=== PATIENT | female | born 1975 | race African-American/Black ===

== ENCOUNTER 2018-01-10 10:06 | Emergency (ER) | payer MEDICARE, OTHER ==
[~2018-01-10] VITALS: Ht 172.7 cm; Wt 113.4 kg
[~2018-01-10 10:06] MED LIST: BACITRACIN15 GM TOPIC; BACTRIM-DS1 EA PO; CEPHALEXIN500 MG PO; CLINDAMYCIN HC300 MG ORAL; CLOTRIMAZOLE15 GM TOPIC; DICLOXACILLIN250 MG PO; DIFLUCAN200 MG ORAL; DOXYCYCLINE MO100 MG ORAL; GENTAK3.5 GM OP; HALOPERIDOL0.5 MG ORAL; HALOPERIDOL1 MG ORAL; IBUPROFEN600 MG ORAL; KEFLEX500 MG ORAL; LATUDA80 MG PO; PRENATA CHEWAB1 EACH PO; RISPERDAL1 MG PO
[2018-01-10 10:23] VITALS: BP 114/68
--- NOTE | 2018-01-10 10:28 | Emergency Room Report ---
History of Present Illness General Chief Complaint: General Complaint Source: Patient Present Illness HPI Patient is a 42-year-old female who presented after she noticed a lesion to her right wrist approximately 3-4 days ago. The patient denies any pain to the area. She had no recent trauma. Patient denies any fever. The patient is right-hand dominant. She denies any numbness or tingling. Allergies: Coded Allergies: No Known Allergies (Unverified , 07/02/12) Patient History Last Menstrual Period: 12/29/17 Now: No Reviewed Nursing Documentation: PMH: Agreed; PSxH: Agreed Nursing Documentation-PMH Past Medical History: No History, Except For Hx Cardiac Problems: No Hx Hypertension: No Hx Pacemaker: No Hx Asthma: No Hx COPD: No Hx Diabetes: No Hx Cancer: No Hx Gastrointestinal Problems: No Hx Dialysis: No History Of Psychiatric Problem: Yes - Schizophrenia Hx Neurological Problems: No Hx Cerebrovascular Accident: No Hx Seizures: No Review of Systems All Other Systems: negative except mentioned in HPI Physical Exam Vital Signs Date Time Temp Pulse Resp B/P (MAP) Pulse Ox O2 Delivery O2 Flow Rate FiO2 01/10/18 10:10 98.4 100 19 114/68 94 Room Air 98.4 General Appearance: well appearing, no apparent distress, alert, GCS 15 Head: normocephalic, atraumatic ENT: hearing grossly normal, normal voice Neck: full range of motion, supple Respiratory: no respiratory distress, speaking full sentences Musculoskeletal: other - lesion to dorsum of right wrist without induration about 4 cm Neurologic: normal gait Psychiatric: mood/affect normal Skin: no rash Medical Decision Making Diagnostic Impression: Primary Impression: Ganglion cyst ER Course Patient presented for wrist lesion. Differential diagnosis included fracture, dislocation, scapphoid fracture, sprain, ganglion cyst, septic joint , arthritis, abscess among others. Patient has a benign exam and does not appear to require any further imaging or laboratory testing at this time. The patient appears to have a ganglion cyst.The patient is advised to follow up with primary care doctor in 1-2 days. Patient is advised to return if any worsening condition or if any changes in status that are concerning. This report is dictated with [employer] wire drawer software which may occasionally lead to discrepancies related to use of this software. Last Vital Signs Date Time Temp Pulse Resp B/P (MAP) Pulse Ox O2 Delivery O2 Flow Rate FiO2 01/10/18 10:23 98.4 19 114/68 94 Room Air 98.4 01/10/18 10:10 100 Status: improved Disposition: HOME, SELF-CARE Condition: Stable Patient Instructions: Ganglion Cyst Additional Instructions: Follow up with primary care physician for orthopedic referral. Mickey Cespedes MD Jan 10, 2018 10:28
== END 2018-01-10 10:30 | disposition home or self-care (01) ==
LOC: EMR 10:30
DX: M67.431 Ganglion, right wrist (principal); F20.9 Schizophrenia, unspecified
CPT/HCPCS: 99283

== ENCOUNTER 2018-10-16 17:42 | Emergency (ER) | payer MEDICARE, OTHER ==
[~2018-10-16] VITALS: Ht 172.7 cm; Wt 115.7 kg
[2018-10-16 18:11] VITALS: BP 108/78
--- NOTE | 2018-10-16 18:22 | Emergency Room Report ---
History of Present Illness General Chief Complaint: Laceration Source: Patient Present Illness HPI 43-year-old female patient presents ER complaining of laceration on right hand middle finger. Reports sustained laceration earlier today while opening a can of tuna. Reports bleeding well controlled at this time. States up-to-date on tetanus vaccination, previously received in the last 5 years. Reports mild pain. Denies other aggravating or relieving factors. Reports right-hand dominant. Allergies: Coded Allergies: No Known Allergies (Unverified , 07/02/12) Patient History Past Medical History: see triage record Last Menstrual Period: 10/08/2018 Nursing Documentation-[facility] Past Medical History: No History, Except For Hx Cardiac Problems: No Hx Hypertension: No Hx Pacemaker: No Hx Asthma: No Hx COPD: No Hx Diabetes: No Hx Cancer: No Hx Gastrointestinal Problems: No Hx Dialysis: No History Of Psychiatric Problem: Yes - Schizophrenia Hx Neurological Problems: No Hx Cerebrovascular Accident: No Hx Seizures: No Review of Systems All Other Systems: negative except mentioned in HPI Physical Exam Vital Signs Date Time Temp Pulse Resp B/P (MAP) Pulse Ox O2 Delivery O2 Flow Rate FiO2 10/16/18 18:02 98.6 91 16 103/72 94 Room Air Sp02 EP Interpretation: reviewed, normal General Appearance: well appearing, no apparent distress, alert, GCS 15, non- toxic Head: normocephalic, atraumatic Eyes: bilateral eye normal inspection, bilateral eye PERRL ENT: hearing grossly normal, normal pharynx, no angioedema, normal voice, uvula midline, moist mucus membranes Neck: full range of motion, no bony tend Respiratory: lungs clear, normal breath sounds, no rhonchi, no respiratory distress, no accessory muscle use, no wheezing, speaking full sentences Cardiovascular #1: regular rate, rhythm, no edema Cardiovascular #2: 2+ radial (R), 2+ radial (L) Musculoskeletal: back normal, digits/nails normal, gait/station normal, normal range of motion, non-tender, other - NVI, cap refill <2seconds Neurologic: alert, oriented x3, responsive, motor strength/tone normal, sensory intact Psychiatric: mood/affect normal Skin: laceration - Right hand middle finger, ulnar side distal phalanx adjacent to nail, no subungual hematoma, no nail avulsion, linear, superficial, no active bleeding Procedures Laceration/Wound Repair Laceration/Wound Repair : Consent: Verbal Wound Location: upper extremity - right hand middle finger Wound's Depth, Shape: superficial Wound Length (cm): 1 Wound Explored: contaminated Irrigated w/ Saline (ccs): 10 Betadine Prep?: Yes Anesthesia: 1% Lidocaine Volume Anesthetic (ccs): 2 Wound Debrided: extensive Wound Repaired With: sutures Number of Sutures: 2 Layer Closure?: No Sterile Dressing Applied?: Yes Splint Applied?: No Sling Applied?: No Patient Tolerated: Well Complications: None Medical Decision Making PA Attestation Dr. Winn is my supervising Physician whom patient management has been discussed with. Diagnostic Impression: Primary Impression: Laceration ER Course Pt presents to ED c/o laceration on finger. DDX considered but are not limited to laceration, abrasion, contusion, cellulitis, nail avulsion, sublingual hematoma. Full range of motion with flexion and extension of the PIP and DIP, superficial laceration, low suspicion for fracture or retained foreign body, does not require x-ray at this time. VITAL SIGNS are WNL, patient is afebrile ED INTERVENTIONS: Wound was cleaned and irrigated using copious normal saline. Digital block block using Lidocaine 1%. Laceration repaired. See procedure note. 2 sutures placed. Wound cleaned and covered using sterile dressing and Bacitracin. Patient reports understanding and agreement to treatment plan. Keep wound clean and dry. Followup with PCP in 2-3 days for wound check and suture removal in 10-12 days. ER precautions given. DISCHARGE: At this time pt is stable for d/c to home. Patient resting comfortably, in no acute distress, nontoxic appearing, talking without difficulty. Will provide with patient care instructions and any necessary prescriptions. Patient to take medication as instructed. Care plan and follow-up instructions provided. Work note provided to patient. Patient questions asked and answered. Patient instructed to follow-up with primary care provider for wound check and suture removal. ER precautions given. Patient instructed to return to ER immediately for any new or worsening of symptoms. - Please note that this Emergency Department Report was dictated using [email or web address] technology software, occasionally this can lead to erroneous entry secondary to interpretation by the dictation equipment. Last Vital Signs Date Time Temp Pulse Resp B/P (MAP) Pulse Ox O2 Delivery O2 Flow Rate FiO2 10/16/18 18:11 98.5 86 17 108/78 98 Room Air Status: improved Disposition: HOME, SELF-CARE Condition: Stable Scripts Ibuprofen* (MOTRIN*) 600 Mg Tablet 600 MG ORAL Q8H PRN for For Pain, #30 TAB 0 Refills Prov: Abrahan Gleason 10/16/18 Cephalexin* (KEFLEX*) 500 Mg Capsule 500 MG ORAL EVERY 12 HOURS, #14 CAP 0 Refills Prov: Abrahan Gleason 10/16/18 Bacitracin/Polymyxin B Sulfate (BACITRACIN-POLYMYXIN OINTMENT) 28.35 Gm Oint...g. 1 APPLIC TP BID, #28 GM Prov: Abrahan Gleason 10/16/18 Patient Instructions: Laceration Care, Adult Additional Instructions: Patient instructed to follow-up with primary care provider in 2-3 days for wound check Suture removal in 10-12 days. Take medications as directed. Keep wound clean and dry. Patient questions asked and answered. ER precautions given, patient instructed to return to ER immediately for any new or worsening of symptoms. Abrahan Gleason Oct 16, 2018 18:22
[2018-10-16] MEDS ORDERED: Bacitracin Oint UD TOPIC ONE (18:30)
[2018-10-16] MEDS ORDERED: Lidocaine 1% MPF 10mg/ml 5ml IM ONE (18:30)
[2018-10-16] MEDS ORDERED: BACITRACIN-P28.35 GM TP (19:55)
[2018-10-16] MEDS ORDERED: IBUPROFEN600 MG ORAL (19:55)
[2018-10-16] MEDS ORDERED: CEPHALEXIN500 MG ORAL (19:55)
[2018-10-16 20:03] VITALS: BP 108/78
== END 2018-10-16 20:03 | disposition home or self-care (01) ==
LOC: EMR 19:55
DX: S61.212A Laceration without foreign body of right middle finger without damage to nail, initial encounter (principal); W26.8XXA Contact with other sharp object(s), not elsewhere classified, initial encounter; Y92.9 Unspecified place or not applicable
CPT/HCPCS: 99282

== ENCOUNTER 2020-07-13 09:04 | Emergency (ER) | payer MEDICARE, OTHER ==
[~2020-07-13] VITALS: Ht 172.7 cm; Wt 127.0 kg
[~2020-07-13 09:04] MED LIST changes: +BACITRACIN-P28.35 GM TP; +CEPHALEXIN500 MG ORAL
[2020-07-13 09:10] VITALS: BP 109/78
--- NOTE | 2020-07-13 09:10 | NUR ---
ED Nurse Note: Patient from home and walked in due to vaginal yeast and noticed small amount of blood x2 days. Pt states it started after she used tropical body wash in her private area. Pt also reports painful urination. AAox4, verbally responisve. No SOB.
--- NOTE | 2020-07-13 10:15 | NUR ---
ED Nurse Note: Urine sent to lab.
[2020-07-13 10:28] LABS: APPEARANCE,URINE CLOUDY; BILIRUBIN, URINE NEGATIVE (NEGATIVE); GLUCOSE, URINE (UA) NEGATIVE (NEGATIVE); KETONES,URINE NEGATIVE (NEGATIVE); LEUKOCYTE ESTERASE ,URINE 3+ (NEGATIVE); NITRITE,URINE NEGATIVE (NEGATIVE); PH,URINE 7 (4.5-8.0); PROTEIN,URINE 3+ (NEGATIVE); UROBILINOGEN,URINE NORMAL MG/DL (0.0-1.0)
[2020-07-13 10:35] LABS: COLOR,URINE YELLOW
[2020-07-13] MEDS ORDERED: FLUCONAZOLE100 MG ORAL (10:41)
[2020-07-13] MEDS ORDERED: Fluconazole 100mg tab ORAL ONE (10:45)
[2020-07-13] MEDS ORDERED: Lidocaine 1% MPF 10mg/ml 5ml INJ ONE (10:45)
[2020-07-13] MEDS ORDERED: Azithromycin 250mg tab ORAL ONE (10:45)
[2020-07-13 10:58] VITALS: BP 109/78
--- NOTE | 2020-07-13 10:58 | NUR ---
ED Nurse Note: Pt cleared by ERMD for discharge. DC instructions/prescription was given and explained to pt and verbalized understanding of teachings. All medical deviecs such as ID band removed. Pt is AAO x4, ambulatory and left with all personal belongings.
--- NOTE | 2020-07-13 13:36 | Emergency Room Report ---
History of Present Illness General Chief Complaint: Vaginal Source: Patient Present Illness HPI 44-year-old female here with vaginal discharge. Patient says that she suffers from yeast infections frequently and says "this feels just like my usual yeast infections." However patient says that she is now sexually active with a male partner does not use protection consistently and says that she is worried that she may have contracted an STD. Symptoms have been ongoing for 2 days. Says that her discharge is creamy. Denies fevers, chills, chest pain, palpitation, shortness breath, back abdominal pain, nausea, vomiting, diarrhea, dysuria. Allergies: Coded Allergies: No Known Allergies (Unverified , 07/02/12) COVID-19 Screening Contact w/high risk pt: No Experienced COVID-19 symptoms?: No COVID-19 Testing performed LACQUER POLISHER: No Patient History Last Menstrual Period: 06/21/20 Now: No Nursing Documentation-PMH Past Medical History: No History, Except For Hx Cardiac Problems: No Hx Hypertension: No Hx Pacemaker: No Hx Asthma: No Hx COPD: No Hx Diabetes: No Hx Cancer: No Hx Gastrointestinal Problems: No Hx Dialysis: No Hx Neurological Problems: No Hx Cerebrovascular Accident: No Hx Seizures: No Review of Systems All Other Systems: negative except mentioned in HPI Physical Exam Vital Signs Date Time Temp Pulse Resp B/P (MAP) Pulse Ox O2 Delivery O2 Flow Rate FiO2 07/13/20 09:09 98.6 90 18 78/ 97 Room Air Sp02 EP Interpretation: reviewed, normal General Appearance: no apparent distress, alert, non-toxic Head: normocephalic, atraumatic Eyes: bilateral eye normal inspection, bilateral eye PERRL ENT: hearing grossly normal, normal pharynx, no angioedema, normal voice Neck: full range of motion, supple/symm/no masses Respiratory: chest non-tender, lungs clear, normal breath sounds, speaking full sentences Cardiovascular #1: regular rate, rhythm, no edema Cardiovascular #2: 2+ carotid (R), 2+ carotid (L), 2+ radial (R), 2+ radial (L), 2+ dorsalis pedis (R), 2+ dorsalis pedis (L) Gastrointestinal: normal bowel sounds, non tender, soft, non-distended, no guarding, no rebound Rectal: deferred Genitourinary: normal inspection, no CVA tenderness, other - No discharge noted on pelvic examination. No adnexal tenderness Musculoskeletal: back normal, normal range of motion, gait/station normal, non- tender Neurologic: alert, motor strength/tone normal, oriented x3, sensory intact, responsive, speech normal Psychiatric: judgement/insight normal, memory normal, mood/affect normal, no suicidal/homicidal ideation Reflexes: 3+ bicep (R), 3+ bicep (L), 3+ tricep (R), 3+ tricep (L), 3+ knee (R), 3+ knee (L) Lymphatic: no adenopathy Medical Decision Making Diagnostic Impression: Primary Impression: Vaginal discharge ER Course Laboratory Tests Test 07/13/20 10:15 Urine Color Yellow Urine Appearance Cloudy Urine pH 7 (4.5-8.0) Urine Specific [place] 1.010 (1.005-1.035) Urine Protein 3+ (NEGATIVE) H Urine Glucose (UA) Negative (NEGATIVE) Urine Ketones Negative (NEGATIVE) Urine Blood 5+ (NEGATIVE) H Urine Nitrite Negative (NEGATIVE) Urine Bilirubin Negative (NEGATIVE) Urine Urobilinogen Normal MG/DL (0.0-1.0) Urine Leukocyte Esterase 3+ (NEGATIVE) H Urine RBC 30-40 /HPF (0 - 2) H Urine WBC Tntc /HPF (0 - 2) H Urine Squamous Epithelial Cells Moderate /LPF (NONE/OCC) H Urine Bacteria Many /HPF (NONE) H Urine HCG, Qualitative Negative (NEGATIVE) 44-year-old female here with vaginal discharge. She was hemodynamically stable and had a normal pelvic examination without any obvious discharge. Patient says that she is now sexually active with a new male partner and does not consistently use protection. She was given ceftriaxone and azithromycin in the emergency department to cover for possible gonorrhea and chlamydia. Was also given a dose of Diflucan and prescription for Diflucan for possible yeast infection. She was told to come back to the emergency room with worsening symptoms. Discharged in stable condition. Last Vital Signs Date Time Temp Pulse Resp B/P (MAP) Pulse Ox O2 Delivery O2 Flow Rate FiO2 07/13/20 10:58 98.6 90 18 109/78 97 Room Air Disposition: HOME, SELF-CARE Condition: Stable Scripts Fluconazole (FLUCONAZOLE) 100 Mg Tablet 100 MG ORAL DAILY, #1 TAB 0 Refills Prov: Davidson Raman M.D. 07/13/20 Referrals: NOT CHOSEN IPA/,REFERRING (PCP) [facility] Patient Instructions: Vaginal Yeast Infection, Adult Davidson Raman M.D. Jul 13, 2020 13:36
[2020-07-16] MEDS ORDERED: NITROFURANTOIN100 M2 ORAL (07:52)
== END 2020-07-13 10:58 | disposition home or self-care (01) ==
LOC: EMR 10:26
DX: N89.8 Other specified noninflammatory disorders of vagina (principal)
CPT/HCPCS: 81003; 81025; 87086; 87181; 96372; 99283; J0696